=== PATIENT | male | born 1955 | race Caucasian/White ===

== ENCOUNTER → 2018-06-15 09:47 | Outpatient (CLI) | payer OTHER, SELFPAY ==
[2018-06-15 11:18] LABS: Add Manual Diff / Slide Review NO; Basophils Absolute Auto 100 /uL (0-100); Eosinophils Absolute Auto 400 /uL (0-450); Eosinophils Percent Auto 6.6 % (2-4); Hematocrit 46.8 % (41-53); Hemoglobin 16.3 g/dL (13.5-17.5); Lymphocytes Absolute Auto 1600 /uL (1100-4500); Lymphocytes Percent Auto 27.8 % (25-40); Mean Corpuscular HGB Conc 34.8 % (30-36); Mean Corpuscular Hemoglobin 32.2 PG (26-34); Mean Corpuscular Volume 92.6 fL (80-100); Monocytes Absolute Auto 500 /uL (0-900); Monocytes Percent Auto 8.4 % (3-14); Neutrophils Absolute Auto 3200 /uL (1500-7000); Neutrophils Percent Auto 56.2 % (50-75); Platelet Count 209 X10^3/uL (150-400); Red Blood Cell Count 5.05 X10^6/uL (4.5-5.9); Red Cell Distribution Width 12.5 % (11.6-14.8); White Blood Cell Count 5.7 X10^3/uL (4.5-11.0)
[2018-06-15 11:30] LABS: Appearance Urine UA CLEAR; Bilirubin Urine UA NEGATIVE (NEGATIVE); Color Urine UA YELLOW; Glucose Urine UA NEGATIVE (Negative); Ketones Urine UA NEGATIVE (NEGATIVE); Leukocyte Esterase Urine UA NEGATIVE (NEGATIVE); Nitrite Urine UA NEGATIVE (Negative); Occult Blood Urine UA NEGATIVE (Negative); Protein Urine UA NEGATIVE (Negative); Urobilinogen Urine UA 0.2 E.U./dL (0.2)
[2018-06-15 11:37] LABS: Alanine Aminotransferase 50 IU/L (21-72); Albumin 4.9 g/dL (3.5-5.0); Albumin Globulin Ratio 1.6 (1.0-2.8); Alkaline Phosphatase 64 U/L (38-126); Aspartate Aminotransferase 39 IU/L (17-59); Bilirubin Total 0.9 mg/dL (0.2-1.3); Blood Urea Nitrogen 29 mg/dL (9-20); Calcium 9.8 mg/dL (8.4-10.2); Carbon Dioxide 25 mmol/L (22-32); Chloride 100 mmol/L (98-107); Cholesterol 209 mg/dL (140-199); Estimated Glomerular Filt Rate > 60.0 mL/min (>60); Globulin 3.1 g/dL (1.7-4.1); Glucose 98 mg/dL (80-110); HDL Cholesterol 45 mg/dL (40-60); HEMOLYSIS < 15 (0-50); LDL Cholesterol Calculated 118 mg/dL (<100); Potassium 4.7 mmol/L (3.4-5.1); Sodium 138 mmol/L (137-145); Triglycerides 229 mg/dL (35-150)
[2018-06-15 12:07] LABS: Prostate Specific Antigen Scrn 2.83 ng/mL (0.1-4.0)
== END ==
PROVIDERS: Visit Provider Family Medicine
DX: I10 Essential (primary) hypertension (principal); N40.0 Benign prostatic hyperplasia without lower urinary tract symptoms; Z00.00 Encounter for general adult medical examination without abnormal findings
CPT/HCPCS: 36415; 80053; 80061; 81003; 84443; 85025; G0103

== ENCOUNTER → 2020-06-10 07:40 | Outpatient (CLI) | payer OTHER, SELFPAY ==
[2020-06-10] MEDS: COVID-19 VACC #1, MRNA(MOD) 100 MCG/0.5 ML VIAL IM (07:56)
== END ==
PROVIDERS: PCP Family Medicine; Visit Provider Internal Medicine
DX: Z23 Encounter for immunization (principal)
CPT/HCPCS: 0011A; 91301

== ENCOUNTER → 2020-07-08 07:37 | Outpatient (CLI) | payer OTHER, SELFPAY ==
[2020-07-08] MEDS: COVID-19 VACC #2, MRNA(MOD) 100 MCG/0.5 ML VIAL IM (07:46)
== END ==
PROVIDERS: PCP Family Medicine; Visit Provider Internal Medicine
DX: Z23 Encounter for immunization (principal)
CPT/HCPCS: 0012A; 91301

== ENCOUNTER → 2020-08-21 07:47 | Outpatient (CLI) | payer OTHER, SELFPAY ==
[2020-08-21 08:16] LABS: Add Manual Diff / Slide Review NO; Basophils Absolute Auto 0 /uL (0-100); Basophils Percent Auto 0.9 % (0-2); Eosinophils Absolute Auto 400 /uL (0-450); Eosinophils Percent Auto 7.2 % (2-4); Hematocrit 44.9 % (41-53); Hemoglobin 15.5 g/dL (13.5-17.5); Lymphocytes Absolute Auto 1800 /uL (1100-4500); Lymphocytes Percent Auto 36.2 % (25-40); Mean Corpuscular HGB Conc 34.6 % (30-36); Mean Corpuscular Hemoglobin 31.8 PG (26-34); Mean Corpuscular Volume 91.8 fL (80-100); Monocytes Absolute Auto 400 /uL (0-900); Monocytes Percent Auto 8.2 % (3-14); Neutrophils Absolute Auto 2300 /uL (1500-7000); Neutrophils Percent Auto 47.5 % (50-75); Platelet Count 206 X10^3/uL (150-400); Red Blood Cell Count 4.89 X10^6/uL (4.5-5.9); Red Cell Distribution Width 12.4 % (11.6-14.8); White Blood Cell Count 4.9 X10^3/uL (4.5-11.0)
[2020-08-21 09:32] LABS: Alanine Aminotransferase 32 IU/L (<50); Albumin 4.6 g/dL (3.5-5.0); Albumin Globulin Ratio 1.4 (1.0-2.8); Alkaline Phosphatase 62 U/L (38-126); Aspartate Aminotransferase 34 IU/L (17-59); BUN Creatinine Ratio 28.7 (6-22); Bilirubin Total 0.4 mg/dL (0.2-1.3); Blood Urea Nitrogen 27 mg/dL (9-20); Calcium 9.8 mg/dL (8.4-10.2); Carbon Dioxide 25 mmol/L (22-32); Chloride 101 mmol/L (98-107); Cholesterol 220 mg/dL (140-199); Estimated Glomerular Filt Rate > 60.0 mL/min (>60); Globulin 3.2 g/dL (1.7-4.1); Glucose 124 mg/dL (80-110); HDL Cholesterol 42 mg/dL (40-60); HEMOLYSIS < 15 (0-50); Potassium 4.4 mmol/L (3.4-5.1); Sodium 135 mmol/L (137-145); Total Protein 7.8 g/dL (6.3-8.2); Triglycerides 481 mg/dL (35-150); Uric Acid 6.1 mg/dL (3.5-8.5)
[2020-08-21 09:57] LABS: Prostate Specific Antigen 4.24 ng/mL (0.10-4.00)
== END ==
PROVIDERS: PCP Family Medicine; Referring Provider Family Medicine; Visit Provider Family Medicine
DX: I10 Essential (primary) hypertension (principal); M75.01 Adhesive capsulitis of right shoulder; N40.1 Benign prostatic hyperplasia with lower urinary tract symptoms; R39.14 Feeling of incomplete bladder emptying; Z80.42 Family history of malignant neoplasm of prostate
CPT/HCPCS: 36415; 80053; 80061; 84153; 84550; 85025

== ENCOUNTER 2020-10-30 09:00 | Outpatient (RCR) | payer OTHER, SELFPAY ==
--- NOTE | 2020-09-17 14:30 | PT.OPPOC ---
Physical, Occupational & Speech Therapy At [facility] Current Diagnoses Adhesive capsulitis of right shoulder (09/17/20) Visit Care Team Role Provider Type Neeraj Negrete DO Attending Provider Physician Primary Care Provider Referring Provider Specialty: Family Practice Address: [address] [place] [address], [id number] Email: [email or web address] Plan Of Care PT-OP-T Assessment and Plan Start: 09/18/20 08:16 Freq: Status: Active Protocol: Document 09/17/20 14:30 HH (Rec: 09/18/20 08:42 HH [email or web address]) Physical Therapy Assessment Goals return to work Impairment 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 Short Term Goal (STG) pt will regain partial strength to be able to lift > 30 lbs to a table without increase in discomfort STG Duration 4 weeks Food Service Lead Goal (LTG) pt will regain partial strength to be able to lift > 50 lbs fire extinguisher at work repetitively without increase in discomfort LTG Duration 8 weeks ROM Impairment pt lacks of R shoulder ROM Short Term Goal (STG) pt will be able to show increased overall R shoulder AROM without increase pain by 10 degrees STG Duration 4 weeks Food Service Lead Goal (LTG) pt will be able to show increased overall R shoulder AROM without increase pain by 20 degrees therefore he can reach overhead for weighted object/ elkin a shirt LTG Duration 8 weeks quickdash Impairment pt scores 22.7 on quickdash Short Term Goal (STG) pt will be able to show improvements in functionality of his R shoulder by scoring < 15 on quickdash. STG Duration 4 weeks Retirement Goal (LTG) pt will be able to show improvements in functionality of his R shoulder by scoring < 10 on quickdash. LTG Duration 8 weeks Assessment Summary Assessment Farhan is a 64 yo male here for his R shoulder pain started in June. Upon assessment, pt presents signs of supraspinatus tendonitis/ strain from repetitively lifting at work. He has painful arc, increase pain with abduction and extension primarily. His strength is moderately affected at this point. Educated pt to support his shoulder when he's sitting . I also applied KT tape to assist his R shoulder stability. Pt will benefit from skilled therapy to increase his R shoulder ROM, strength and stability in order for him to lift heavy objects at work again. Physical Therapy Plan Frequency and Duration Frequency of Treatment 2x/wk x4, 1x/wkx4 Duration of Treatment 8 weeks Plan of Care Start Date 09/17/20 Plan of Care End Date 11/17/20 Therapeutic Interventions Therapeutic Interventions Home Exercise Program,Joint Mobilizations,Manual Therapy, Neuromuscular Re-education, Patient/Caregiver Education, Self-Care/Home Management,Soft Tissue Mobilization,Taping, Therapeutic Activities, Therapeutic Exercises Modalities Cold Pack/Ice Massage,Electric Stimulation,Hot Packs, Infrared Therapy,Ultrasound Next Visit Focus/Plan Next Note Type Treatment Note Next Visit Plan JEFFREY matos STM at tendon supine ER scap retraction Plan of Care Dates Plan of Care Start Date 09/17/20 Plan of Care End Date 11/17/20 Electronically Signed by: Isidra Israel, PT 09/18/20 0844 Please Sign and Return: I have reviewed this Plan of Care and certify that the skilled therapy services above are required to meet the patient?s needs. Physician Signature Date Printed Name and Credentials Clinical Instructor Signature Printed Name and Credentials
--- NOTE | 2020-09-17 14:30 | PT.OIE ---
Current Diagnoses Adhesive capsulitis of right shoulder (09/17/20) Past Medical History (Last Updated 08/18/20 @ 10:07 by Neeraj Negrete DO) Adhesive capsulitis of shoulder Benign prostatic hyperplasia Family history of prostate cancer Well adult exam Visit Care Team Role Provider Type Neeraj Negrete DO Attending Provider Physician Primary Care Provider Referring Provider Specialty: [facility] Address: [address] [place] [address], [facility] Email: [email or web address] Initial Evaluation PT-OP-A Visit Information Start: 09/18/20 08:16 Freq: Status: Active Protocol: Document 09/17/20 14:30 HH (Rec: 09/18/20 08:42 HH [email or web address]) Out-Patient Physical Therapy Visit Information Visit Information Visit Type Initial Evaluation Visit Start Time 14:30 Visit Stop Time 15:15 Total Visit Minutes 45 Visit Number 1/6 Number of ELECTROLYSIS ENGINEER Visits 0 Evaluation Information Evaluation Date 09/18/20 Precautions Precautions HTN PT-OP-B Current Condition Start: 09/18/20 08:16 Freq: Status: Active Protocol: Document 09/17/20 14:30 HH (Rec: 09/18/20 08:42 HH [email or web address]) Current Condition History of Current Condition Onset Date June Current Complaints R shoulder pain, unable to abduct his arm, reaching overhead History of Current Condition Farhan is a 64 yo male here for his new onset of R shoulder pain started this June. He stated he has been chopping lots of wood since last summer and lifting heavy fire extinguishers at work, which caused his shoulder pain one day. His deep achy pain is lateral to his shoulder with difficulty abducting and holding his arm up. Reaching back to elkin clothes is also difficulty for him. However, lifting through bicep curl does not cause any pain. He denies tingling/ numbness sensation. He also went to see Dr. Negrete who prescribed wall climb exercise to him and he is slightly getting better . 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 Treatment Goals Patient/Caregiver Goals 1. to be able to reach overhead without difficulty 2. to be able to lift objects >50 without pain PT-OP-C Subjective Start: 09/18/20 08:16 Freq: Status: Active Protocol: Document 09/17/20 14:30 HH (Rec: 09/18/20 08:42 HH [email or web address]) Patient Questionnaires Quick Dash- Upper Extremity Quick Dash UE Score 22.7 Quick Dash UE Impairment 20 to 39% Impaired (Score 20- 39) OP-PT Pain Assessment Location R shoulder pain Pain Location Details superiolateral aspect Intensity 4 Scale Used Numeric (0 - 10) Description Aching,Dull,Radiating Frequency Frequent Pain Aggravating Factors Exercise,Lifting Pain Alleviating Factors Inactivity PT-OP-E Functional Tests Start: 09/18/20 08:16 Freq: Status: Active Protocol: Document 09/17/20 14:30 HH (Rec: 09/18/20 08:42 HH [email or web address]) Functional Tests Apley's Scratch Test Action 1- Left slight pain at AC joint region Action 1- Right slight pain at AC joint region Action 2- Left T3 Action 2- Right T1 Action 3- Left T6 Action 3- Right L3 PT-OP-F Manual Assessment Start: 09/18/20 08:16 Freq: Status: Active Protocol: Document 09/17/20 14:30 HH (Rec: 09/18/20 08:42 HH [email or web address]) Manual Assessments Soft Tissue Assessment Soft Tissue Mobility Assessment pain with deep pressure at distal insertion of supraspinatus. hypertonicity at R pec PT-OP-J Posture/Palpation/Skin Start: 09/18/20 08:16 Freq: Status: Active Protocol: Document 09/17/20 14:30 HH (Rec: 09/18/20 08:42 HH [email or web address]) Posture Evaluation Position Standing Shoulder Posture (R) Rounded Scapula Posture (R) Protracted PT-OP-K Range of Motion Start: 09/18/20 08:16 Freq: Status: Active Protocol: Document 09/17/20 14:30 HH (Rec: 09/18/20 08:42 HH [email or web address]) Shoulder Goniometric Range of Motion Shoulder Right Active Shoulder ROM WFL No Testing Position Standing Flexion 150 Extension 45 Abduction 150 External Rotation at 90 degrees 50 Abduction Internal Rotation 50 Comments superiolateral shoulder pain at end range ABD>ER/IR> extension Left Active Shoulder ROM WFL Yes Flexion 175 Extension 52 Abduction 174 External Rotation at 90 degrees 75 Abduction Internal Rotation 75 PT-OP-L Special Tests Start: 09/18/20 08:16 Freq: Status: Active Protocol: Document 09/17/20 14:30 HH (Rec: 09/18/20 08:44 HH [email or web address]) Special Tests Shoulder Special Tests Relocation Test Results +Ve Comments painful with downward traction , no pain with upward compression painful arc Test Results +VE Comments most pain at 90 degrees abduction Drop Arm Rotator Cuff Test Results -ve Empty Can Test Results +VE Neer Impingement Test Results +VE Porras Gabriel Impingement Test Results +VE PT-OP-M Strength Start: 09/18/20 08:16 Freq: Status: Active Protocol: Document 09/17/20 14:30 HH (Rec: 09/18/20 08:42 HH [email or web address]) Shoulder Strength Shoulder Manual Muscle Testing Right Flexion 4- Good- Extension 4- Good- Abduction (C5) 4- Good- External Rotation 3+ Fair+ Internal Rotation 3+ Fair+ Left Flexion 5 Normal Extension 5 Normal Abduction (C5) 5 Normal Adduction 5 Normal External Rotation 5 Normal Internal Rotation 5 Normal PT-OP-Q Treatments Start: 09/18/20 08:16 Freq: Status: Active Protocol: Document 09/17/20 14:30 HH (Rec: 09/18/20 08:42 [email or web address]) Therapeutic Exercises Sitting Exercises OH shawna Sitting Exercise Name FF, abduction Side left Comments for HEP Standing Exercises scap retraction Side bilateral Comments for hEP Manual Therapy Treatment Taping R shoulder Treatment Focus shoulder stability Type of Tape Kinesio Tape Skin Inspection good Comments to provide upward lift of GHJ to relieve pain PT-OP-T Assessment and Plan Start: 09/18/20 08:16 Freq: Status: Active Protocol: Document 09/17/20 14:30 HH (Rec: 09/18/20 08:42 [email or web address]) Physical Therapy Assessment Goals return to work Impairment 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 Short Term Goal (STG) pt will regain partial strength to be able to lift > 30 lbs to a table without increase in discomfort STG Duration 4 weeks Fiberglass Quality Technician Goal (LTG) pt will regain partial strength to be able to lift > 50 lbs fire extinguisher at work repetitively without increase in discomfort LTG Duration 8 weeks ROM Impairment pt lacks of R shoulder ROM Short Term Goal (STG) pt will be able to show increased overall R shoulder AROM without increase pain by 10 degrees STG Duration 4 weeks Fiberglass Quality Technician Goal (LTG) pt will be able to show increased overall R shoulder AROM without increase pain by 20 degrees therefore he can reach overhead for weighted object/ elkin a shirt LTG Duration 8 weeks quickdash Impairment pt scores 22.7 on quickdash Short Term Goal (STG) pt will be able to show improvements in functionality of his R shoulder by scoring < 15 on quickdash. STG Duration 4 weeks Mcc Goal (LTG) pt will be able to show improvements in functionality of his R shoulder by scoring < 10 on quickdash. LTG Duration 8 weeks Assessment Summary Assessment Farhan is a 64 yo male here for his R shoulder pain started in June. Upon assessment, pt presents signs of supraspinatus tendonitis/ strain from repetitively lifting at work. He has painful arc, increase pain with abduction and extension primarily. His strength is moderately affected at this point. Educated pt to support his shoulder when he's sitting . I also applied KT tape to assist his R shoulder stability. Pt will benefit from skilled therapy to increase his R shoulder ROM, strength and stability in order for him to lift heavy objects at work again. Physical Therapy Plan Frequency and Duration Frequency of Treatment 2x/wk x4, 1x/wkx4 Duration of Treatment 8 weeks Plan of Care Start Date 09/17/20 Plan of Care End Date 11/17/20 Therapeutic Interventions Therapeutic Interventions Home Exercise Program,Joint Mobilizations,Manual Therapy, Neuromuscular Re-education, Patient/Caregiver Education, Self-Care/Home Management,Soft Tissue Mobilization,Taping, Therapeutic Activities, Therapeutic Exercises Modalities Cold Pack/Ice Massage,Electric Stimulation,Hot Packs, Infrared Therapy,Ultrasound Next Visit Focus/Plan Next Note Type Treatment Note Next Visit Plan OH shawna STM at tendon supine ER scap retraction
--- NOTE | 2020-09-22 10:35 | PT.OTN ---
Current Diagnoses Adhesive capsulitis of right shoulder (09/22/20) Physical Therapy Treatment Note PT-OP-A Visit Information Start: 09/18/20 08:16 Freq: Status: Active Protocol: Document 09/22/20 10:29 OF (Rec: 09/22/20 10:35 OF [email or web address]) Out-Patient Physical Therapy Visit Information Visit Information Visit Type Treatment Note Visit Start Time 08:16 Visit Stop Time 09:02 Total Visit Minutes 46 Visit Number 2/6 Evaluation Information Evaluation Date 09/18/20 Precautions Precautions HTN PT-OP-B Current Condition Start: 09/18/20 08:16 Freq: Status: Active Protocol: Document 09/17/20 14:30 HH (Rec: 09/18/20 08:42 HH [email or web address]) Current Condition History of Current Condition Onset Date June Current Complaints R shoulder pain, unable to abduct his arm, reaching overhead History of Current Condition Farhan is a 64 yo male here for his new onset of R shoulder pain started this June. He stated he has been chopping lots of wood since last summer and lifting heavy fire extinguishers at work, which caused his shoulder pain one day. His deep achy pain is lateral to his shoulder with difficulty abducting and holding his arm up. Reaching back to elkin clothes is also difficulty for him. However, lifting through bicep curl does not cause any pain. He denies tingling/ numbness sensation. He also went to see Dr. Negrete who prescribed wall climb exercise to him and he is slightly getting better . 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 Treatment Goals Patient/Caregiver Goals 1. to be able to reach overhead without difficulty 2. to be able to lift objects >50 without pain PT-OP-C Subjective Start: 09/18/20 08:16 Freq: Status: Active Protocol: Document 09/22/20 10:29 OF (Rec: 09/22/20 10:35 OF [email or web address]) OP-PT Subjective Patient Comments Patient Comments pt states his shoulder feels a little better and he would like ot cancel all visits except final visit, requesting HEP in place of clinic visits . Patient Reported Progress Improving OP-PT Pain Assessment Pain Assessment Grid Paper Pain Assessment Grid Completed No: 04/15 in R ldr PT-OP-E Functional Tests Start: 09/18/20 08:16 Freq: Status: Active Protocol: Document 09/17/20 14:30 HH (Rec: 09/18/20 08:42 [email or web address]) Functional Tests Apley's Scratch Test Action 1- Left slight pain at AC joint region Action 1- Right slight pain at AC joint region Action 2- Left T3 Action 2- Right T1 Action 3- Left T6 Action 3- Right L3 PT-OP-F Manual Assessment Start: 09/18/20 08:16 Freq: Status: Active Protocol: Document 09/17/20 14:30 HH (Rec: 09/18/20 08:42 HH [email or web address]) Manual Assessments Soft Tissue Assessment Soft Tissue Mobility Assessment pain with deep pressure at distal insertion of supraspinatus. hypertonicity at R pec PT-OP-J Posture/Palpation/Skin Start: 09/18/20 08:16 Freq: Status: Active Protocol: Document 09/17/20 14:30 HH (Rec: 09/18/20 08:42 HH [email or web address]) Posture Evaluation Position Standing Shoulder Posture (R) Rounded Scapula Posture (R) Protracted PT-OP-K Range of Motion Start: 09/18/20 08:16 Freq: Status: Active Protocol: Document 09/17/20 14:30 HH (Rec: 09/18/20 08:42 HH [email or web address]) Shoulder Goniometric Range of Motion Shoulder Right Active Shoulder ROM WFL No Testing Position Standing Flexion 150 Extension 45 Abduction 150 External Rotation at 90 degrees 50 Abduction Internal Rotation 50 Comments superiolateral shoulder pain at end range ABD>ER/IR> extension Left Active Shoulder ROM WFL Yes Flexion 175 Extension 52 Abduction 174 External Rotation at 90 degrees 75 Abduction Internal Rotation 75 PT-OP-L Special Tests Start: 09/18/20 08:16 Freq: Status: Active Protocol: Document 09/17/20 14:30 HH (Rec: 09/18/20 08:44 HH [email or web address]) Special Tests Shoulder Special Tests Relocation Test Results +Ve Comments painful with downward traction , no pain with upward compression painful arc Test Results +VE Comments most pain at 90 degrees abduction Drop Arm Rotator Cuff Test Results -ve Empty Can Test Results +VE Neer Impingement Test Results +VE Porras Gabriel Impingement Test Results +VE PT-OP-M Strength Start: 09/18/20 08:16 Freq: Status: Active Protocol: Document 09/17/20 14:30 HH (Rec: 09/18/20 08:42 HH [email or web address]) Shoulder Strength Shoulder Manual Muscle Testing Right Flexion 4- Good- Extension 4- Good- Abduction (C5) 4- Good- External Rotation 3+ Fair+ Internal Rotation 3+ Fair+ Left Flexion 5 Normal Extension 5 Normal Abduction (C5) 5 Normal Adduction 5 Normal External Rotation 5 Normal Internal Rotation 5 Normal PT-OP-Q Treatments Start: 09/18/20 08:16 Freq: Status: Active Protocol: Document 09/22/20 10:29 OF (Rec: 09/22/20 10:35 OF [email or web address]) Therapeutic Exercises Sidelying Exercises ext rot Side right Comments demo for eccentric control of ext rot Sitting Exercises OH shawna Sitting Exercise Name FF, abduction Side left Comments for HEP Standing Exercises ext rot Side right Resistance TB1 Reps/Minutes 1x10 Comments pt advised to wait until next week for resisted ext rot rows Standing Exercise Name standing rows Side bilateral Resistance TB2 Reps/Minutes 2x10 scap retraction Side bilateral Comments for hEP Self-Care/Home Management Treatment Education Patient Education Home Exercise Program PT-OP-T Assessment and Plan Start: 09/18/20 08:16 Freq: Status: Active Protocol: Document 09/22/20 10:29 OF (Rec: 09/22/20 10:35 OF [email or web address]) Physical Therapy Assessment Rehab Potential Rehabilitation Potential Good Evaluation Complexity Number of Personal Factors/Comorbidities 1-2 Number of Body Systems Impaired 1-2 Clinical Presentation at Evaluation Stable Impairments Impairments Activity Tolerance,Strength Progress Towards Goals Progress Towards Goals Progressing Toward Goals Assessment Summary Assessment Farhan has requested to cancel his visits except final visit. He has pulleys at home now, agreeable to HEP. He has been educated upon [facility] with aron for periscapular MM and shoulder. He is agreeable to HEP as instructed, progressing through pain free ROM Physical Therapy Plan Frequency and Duration Duration of Treatment 8 weeks Plan of Care Start Date 09/17/20 Plan of Care End Date 11/17/20 Next Visit Focus/Plan Next Note Type Treatment Note Next Visit Plan DC per pt request unless worse . Progress HEP for return to function
--- NOTE | 2020-10-30 12:05 | PT.OTN ---
Current Diagnoses Adhesive capsulitis of right shoulder (10/30/20) Physical Therapy Treatment Note PT-OP-A Visit Information Start: 09/18/20 08:16 Freq: Status: Active Protocol: Document 10/30/20 12:00 HH (Rec: 10/30/20 12:05 [email or web address]) Out-Patient Physical Therapy Visit Information Visit Information Visit Type Progress Note Visit Start Time 09:00 Visit Stop Time 09:45 Total Visit Minutes 45 Visit Number 3/6 PT-OP-B Current Condition Start: 09/18/20 08:16 Freq: Status: Active Protocol: Document 09/17/20 14:30 HH (Rec: 09/18/20 08:42 [email or web address]) Current Condition History of Current Condition Onset Date June Current Complaints R shoulder pain, unable to abduct his arm, reaching overhead History of Current Condition Farhan is a 64 yo male here for his new onset of R shoulder pain started this June. He stated he has been chopping lots of wood since last summer and lifting heavy fire extinguishers at work, which caused his shoulder pain one day. His deep achy pain is lateral to his shoulder with difficulty abducting and holding his arm up. Reaching back to elkin clothes is also difficulty for him. However, lifting through bicep curl does not cause any pain. He denies tingling/ numbness sensation. He also went to see Dr. Negrete who prescribed wall climb exercise to him and he is slightly getting better . 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 Treatment Goals Patient/Caregiver Goals 1. to be able to reach overhead without difficulty 2. to be able to lift objects >50 without pain PT-OP-C Subjective Start: 09/18/20 08:16 Freq: Status: Active Protocol: Document 10/30/20 12:00 HH (Rec: 10/30/20 12:05 [email or web address]) OP-PT Subjective Patient Comments Patient Comments Both shoulders getting better expecially my L one. My R one still gets burning sensation and sore easily. Patient Reported Progress Improving PT-OP-E Functional Tests Start: 09/18/20 08:16 Freq: Status: Active Protocol: Document 09/17/20 14:30 HH (Rec: 09/18/20 08:42 [email or web address]) Functional Tests Apley's Scratch Test Action 1- Left slight pain at AC joint region Action 1- Right slight pain at AC joint region Action 2- Left T3 Action 2- Right T1 Action 3- Left T6 Action 3- Right L3 PT-OP-F Manual Assessment Start: 09/18/20 08:16 Freq: Status: Active Protocol: Document 09/17/20 14:30 HH (Rec: 09/18/20 08:42 [email or web address]) Manual Assessments Soft Tissue Assessment Soft Tissue Mobility Assessment pain with deep pressure at distal insertion of supraspinatus. hypertonicity at R pec PT-OP-J Posture/Palpation/Skin Start: 09/18/20 08:16 Freq: Status: Active Protocol: Document 09/17/20 14:30 HH (Rec: 09/18/20 08:42 [email or web address]) Posture Evaluation Position Standing Shoulder Posture (R) Rounded Scapula Posture (R) Protracted PT-OP-K Range of Motion Start: 09/18/20 08:16 Freq: Status: Active Protocol: Document 09/17/20 14:30 HH (Rec: 09/18/20 08:42 [email or web address]) Shoulder Goniometric Range of Motion Shoulder Right Active Shoulder ROM WFL No Testing Position Standing Flexion 150 Extension 45 Abduction 150 External Rotation at 90 degrees 50 Abduction Internal Rotation 50 Comments superiolateral shoulder pain at end range ABD>ER/IR> extension Left Active Shoulder ROM WFL Yes Flexion 175 Extension 52 Abduction 174 External Rotation at 90 degrees 75 Abduction Internal Rotation 75 PT-OP-L Special Tests Start: 09/18/20 08:16 Freq: Status: Active Protocol: Document 09/17/20 14:30 HH (Rec: 09/18/20 08:44 [email or web address]) Special Tests Shoulder Special Tests Relocation Test Results +Ve Comments painful with downward traction , no pain with upward compression painful arc Test Results +VE Comments most pain at 90 degrees abduction Drop Arm Rotator Cuff Test Results -ve Empty Can Test Results +VE Neer Impingement Test Results +VE Porras Gabriel Impingement Test Results +VE PT-OP-M Strength Start: 09/18/20 08:16 Freq: Status: Active Protocol: Document 09/17/20 14:30 HH (Rec: 09/18/20 08:42 [email or web address]) Shoulder Strength Shoulder Manual Muscle Testing Right Flexion 4- Good- Extension 4- Good- Abduction (C5) 4- Good- External Rotation 3+ Fair+ Internal Rotation 3+ Fair+ Left Flexion 5 Normal Extension 5 Normal Abduction (C5) 5 Normal Adduction 5 Normal External Rotation 5 Normal Internal Rotation 5 Normal PT-OP-Q Treatments Start: 09/18/20 08:16 Freq: Status: Active Protocol: Document 10/30/20 12:00 (Rec: 10/30/20 12:05 [email or web address]) Therapeutic Exercises Sitting Exercises OH shawna Sitting Exercise Name FF, abduction with flexed elbow Side bilateral Comments for HEP Standing Exercises shd extension Side bilateral Equipment Used level 1 band Reps/Minutes 10 x2 ext rot Side right Resistance TB1 Reps/Minutes 1x10 Comments cues on scap retraction, and half range only scap retraction Side bilateral Comments for hEP Manual Therapy Treatment Soft Tissue Mobilization RTC Body Location pecs, supraspinatus, subscapularis Mobilization Type Myofascial Release,Sustained Pressure,Trigger Point Release Intensity/Depth Deep Comments significant toncity at subscapularis Joint Mobilizations GHJ Direction inf, post Grade III Body Position Supine PT-OP-T Assessment and Plan Start: 09/18/20 08:16 Freq: Status: Active Protocol: Document 10/30/20 12:00 (Rec: 10/30/20 12:05 [email or web address]) Physical Therapy Assessment Goals return to work Impairment 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 Short Term Goal (STG) pt will regain partial strength to be able to lift > 30 lbs to a table without increase in discomfort STG Duration 4 weeks Manager Psychology Goal (LTG) pt will regain partial strength to be able to lift > 50 lbs fire extinguisher at work repetitively without increase in discomfort LTG Duration 8 weeks Assessment Summary Assessment pt shows good progress with improve range and pain. However, he continues to have burning sensation at supraspinatus tendon with activity and lack of end range abd, flexion. Spent time on manual therapy on RTC and low grade strengthening of RTC. Educated him to rest his arm on supported surface to reduce weight if he ever gets sore. Pt would like me to call him in a few weeks for f/u Physical Therapy Plan Frequency and Duration Duration of Treatment 8 weeks Plan of Care Start Date 09/17/20 Plan of Care End Date 11/17/20 Therapeutic Interventions Therapeutic Interventions Home Exercise Program,Joint Mobilizations,Manual Therapy, Neuromuscular Re-education, Patient/Caregiver Education, Self-Care/Home Management,Soft Tissue Mobilization,Taping, Therapeutic Activities, Therapeutic Exercises Modalities Cold Pack/Ice Massage,Electric Stimulation,Hot Packs, Infrared Therapy,Ultrasound Next Visit Focus/Plan Next Note Type Treatment Note Next Visit Plan DC per pt request unless worse . Progress HEP for return to function
--- NOTE | 2020-12-29 13:21 | PT.OPDS ---
Current Diagnoses Adhesive capsulitis of right shoulder (10/30/20) Visit Care Team Role Provider Type Neeraj Negrete DO Attending Provider Physician Primary Care Provider Referring Provider Specialty: [facility] Address: [address] [place] [address], [facility] Email: [email or web address] Visit Number Visit Number 05/09 Discharge Summary PT-OP-T Assessment and Plan Start: 09/18/20 08:16 Freq: Status: Active Protocol: Document 12/29/20 13:21 (Rec: 12/29/20 13:21 [email or web address]) Physical Therapy Plan Discharge Physical Therapy Discharge Reasons No Longer Attending PT Discharge Comments pt has not returned since October. Per EMR, pt has shown good progress since evaluation . DC from PT today
== END 2021-01-14 12:54 ==
LOC: PHYS 09:00
PROVIDERS: PCP Family Medicine; Referring Provider Family Medicine; Visit Provider Family Medicine
DX: M75.01 Adhesive capsulitis of right shoulder (principal)
CPT/HCPCS: 97110; 97140; 97161

== ENCOUNTER → 2021-04-27 09:16 | Outpatient (CLI) | payer OTHER, SELFPAY ==
--- NOTE | 2021-04-27 09:17 | DI.RAD.S_ITS ---
PROCEDURE: XR KNEE RT 3V INDICATIONS: progressive R knee pain TECHNIQUE: 3 views of the knee were acquired. COMPARISON: None. FINDINGS: Bones: No fractures or dislocations. Small superior patellar enthesophyte. A fabella is seen. Soft tissues: No joint effusion. Lateral edema. IMPRESSION: 1. No acute osseous abnormality. 2. Lateral soft tissue edema. Dictated by: Christ Cuba M.D. on 04/27/2021 at 11:36 Approved by: Christ Cuba M.D. on 04/27/2021 at 11:37
[2021-04-27 10:35] LABS: Alanine Aminotransferase 29 IU/L (<50); Albumin 4.8 g/dL (3.5-5.0); Albumin Globulin Ratio 1.4 (1.0-2.8); Alkaline Phosphatase 55 U/L (38-126); Aspartate Aminotransferase 27 IU/L (17-59); Bilirubin Total 0.7 mg/dL (0.2-1.3); Blood Urea Nitrogen 26 mg/dL (9-20); Calcium 9.5 mg/dL (8.4-10.2); Carbon Dioxide 26 mmol/L (22-32); Chloride 104 mmol/L (98-107); Cholesterol 217 mg/dL (140-199); Estimated Glomerular Filt Rate > 60.0 mL/min (>60); Globulin 3.4 g/dL (1.7-4.1); Glucose 129 mg/dL (80-110); HDL Cholesterol 44 mg/dL (40-60); HEMOLYSIS < 15 (0-50); LDL Cholesterol Calculated 130 mg/dL (<100); Potassium 4.3 mmol/L (3.4-5.1); Sodium 139 mmol/L (137-145); Total Protein 8.2 g/dL (6.3-8.2); Triglycerides 214 mg/dL (35-150); Uric Acid 6.2 mg/dL (3.5-8.5)
[2021-04-27 11:01] LABS: TSH w/ Reflex to FT4 1.53 uIU/mL (0.47-4.68)
[2021-04-27 11:02] LABS: Prostate Specific Antigen 4.66 ng/mL (0.10-4.00)
== END ==
PROVIDERS: PCP Family Medicine; Referring Provider Family Medicine; Visit Provider Family Medicine
DX: R60.0 Localized edema (principal); M25.561 Pain in right knee; I20.9 Angina pectoris, unspecified; E78.1 Pure hyperglyceridemia; N40.0 Benign prostatic hyperplasia without lower urinary tract symptoms
CPT/HCPCS: 36415; 73562; 80053; 80061; 84153; 84443; 84550

== ENCOUNTER → 2021-05-05 08:57 | Outpatient (CLI) | payer OTHER, SELFPAY ==
[2021-05-05 12:21] LABS: COVID19 -Nasal RAPID Negative (Negative)
== END ==
PROVIDERS: PCP Family Medicine; Visit Provider Family Medicine Sleep Medicine
DX: Z20.822 Contact with and (suspected) exposure to COVID-19 (principal)
CPT/HCPCS: 87635; C9803

== ENCOUNTER → 2021-05-06 08:10 | Outpatient (CLI) | payer OTHER, SELFPAY ==
--- NOTE | 2021-05-06 09:14 | PM.TREADMILL ---
Cardiac Stress Test Report Referral & Results Date Patient Seen: 05/06/21 Time Patient Seen: 09:00 Requesting provider: Neeraj Negrete Indication: Chest discomfort, fatigue Rest ECG: Normal sinus rhythm Procedure Note: Today following both written and verbal informed consent, the patient was exercised according to a standard Levi protocol. The patient exercised for a total of 11 minutes achieving a maximum heart rate of 158. Patient's maximum systolic blood pressure was 180. This was an estimated 12.8 METs. Normal hemodynamic response to exercise. Excellent exercise capacity (GRAY-30% on active scale). Presenting symptom of mild chest pressure was reproduced on exercise and increased modestly in proportion to exertion. Occasional PVCs that did NOT increase in proportion to exertion. The rhythm strip had the appearance of ST depression in inferior and septal leads that resolved almost immediately at rest. Interpretation includes artifact vs mild demand ischemia. Impression: Intermediate probability for ischemia. Assuming that ST depressions were not artifact, El treadmill score of 2 predicts 90% survival rate at 5 years from cardiac causes of mortality. In this patient, consider passive surveillance vs follow-up isotope study. Please note: Actual ECG tracings can be found in the PACS system.
== END ==
PROVIDERS: PCP Family Medicine; Referring Provider Family Medicine; Visit Provider Family Medicine
DX: I20.8 Other forms of angina pectoris (principal)
CPT/HCPCS: 93016; 93017; 93018

== ENCOUNTER → 2021-08-31 09:40 | Outpatient (CLI) | payer OTHER, SELFPAY ==
[2021-09-01 08:53] LABS: PSA Free % 15.2 % (.); PSA, Total 4.2 ng/mL (0.0-4.0)
== END ==
PROVIDERS: PCP Family Medicine; Referring Provider Urology; Visit Provider Urology
DX: R97.20 Elevated prostate specific antigen [PSA] (principal); Z80.42 Family history of malignant neoplasm of prostate
CPT/HCPCS: 36415; 84153; 84154

== ENCOUNTER → 2021-12-03 10:27 | Outpatient (CLI) | payer OTHER, SELFPAY ==
[2021-12-04 08:36] LABS: PSA Free % 12.1 % (.); PSA, Total 4.3 ng/mL (0.0-4.0)
== END ==
PROVIDERS: PCP Family Medicine; Referring Provider Urology; Visit Provider Urology
DX: R97.20 Elevated prostate specific antigen [PSA] (principal)
CPT/HCPCS: 36415; 84153; 84154

== ENCOUNTER → 2022-03-11 09:30 | Outpatient (CLI) | payer OTHER, SELFPAY ==
[2022-03-15 20:34] LABS: PSA Free % 16.4 % (.); PSA, Total 4.5 ng/mL (0.0-4.0)
== END ==
PROVIDERS: PCP Family Medicine; Referring Provider Urology; Visit Provider Urology
DX: R97.20 Elevated prostate specific antigen [PSA] (principal); Z80.42 Family history of malignant neoplasm of prostate
CPT/HCPCS: 36415; 84153; 84154

== ENCOUNTER → 2022-07-15 09:26 | Outpatient (CLI) | payer OTHER, SELFPAY ==
[2022-07-17 09:36] LABS: PSA Free % 12.4 % (.); PSA, Total 5.1 ng/mL (0.0-4.0)
== END ==
PROVIDERS: PCP Family Medicine; Referring Provider Urology; Visit Provider Urology
DX: R97.20 Elevated prostate specific antigen [PSA] (principal); Z80.42 Family history of malignant neoplasm of prostate
CPT/HCPCS: 36415; 84153; 84154

== ENCOUNTER → 2022-08-12 12:06 | Outpatient (CLI) | payer OTHER, SELFPAY ==
--- NOTE | 2022-08-12 | DI.MRI.S_ITS ---
PROCEDURE: MR PELVIS WO/W CON INDICATIONS: ELEVATED AND RISING PSA W/FAM HISTORY PROSTATE CA TECHNIQUE: Coronal HASTE, axial T1 FSE with fat saturation, 3-plane nonbreath-hold T2 FSE. After the administration of contrast, dynamic axial, delayed axial and coronal VIBE or 2-D FLASH with fat saturation through the pelvis. Optional diffusion weighted imaging and ADC may be performed. COMPARISON: None. FINDINGS: Image quality: Diffusion weighted and dynamic contrast enhanced images are diagnostic. Prostate: Gland size is 6.1 x 4.8 x 5.7 cm; ellipsoid gland volume is 87 mL. Mild linear and wedge-shaped ADC hypointensities present within the prostate peripheral zone with indistinct T2 correlates (PI-RADS 2 findings). Enlargement of the prostate transitional zone with findings typical of benign prostatic hyperplasia. No large lesion strongly stands out against background parenchymal changes of BPH on T2 weighted images (PI-RADS 2 findings). Genitourinary system: Bladder wall thickness is normal. Distal ureters are non distended. Bowel and peritoneum: No pathologic free pelvic fluid. Inferior colon and small bowel loops are normal in caliber. Nodes and vessels: No pelvic or inguinal adenopathy by size criteria. Iliac vessels are normal in caliber. Bones: Marrow demonstrates normal overall signal, without lesions to suggest metastases. IMPRESSION: 1. No large or highly suspicious focal prostate lesion to direct biopsy. There is enlargement of the prostate transitional zone with findings typical of benign prostatic hyperplasia, with prostate volume estimated at 87 cc. 2. No suspicious lymph nodes identified in the imaged pelvis. Dictated by: Jono Puri M.D. on 08/12/2022 at 14:57 Approved by: Jono Puri M.D. on 08/12/2022 at 15:45
== END ==
PROVIDERS: PCP Family Medicine; Referring Provider Urology; Visit Provider Urology
DX: R97.20 Elevated prostate specific antigen [PSA] (principal); Z80.42 Family history of malignant neoplasm of prostate; N40.1 Benign prostatic hyperplasia with lower urinary tract symptoms
CPT/HCPCS: 72197; A9579

== ENCOUNTER → 2022-11-24 10:25 | Outpatient (CLI) | payer OTHER, SELFPAY ==
[2022-11-27 09:06] LABS: PSA Free % 15.1 % (.); PSA, Total 3.5 ng/mL (0.0-4.0)
== END ==
PROVIDERS: PCP Family Medicine; Referring Provider Urology; Visit Provider Urology
DX: R97.20 Elevated prostate specific antigen [PSA] (principal)
CPT/HCPCS: 36415; 84153; 84154

== ENCOUNTER → 2023-02-10 09:53 | Outpatient (CLI) | payer OTHER, SELFPAY ==
[2023-02-13 23:27] LABS: PSA Free % 14.4 % (.); PSA, Total 4.1 ng/mL (0.0-4.0)
== END ==
PROVIDERS: PCP Family Medicine; Referring Provider Urology; Visit Provider Urology
DX: N42.9 Disorder of prostate, unspecified (principal)
CPT/HCPCS: 36415; 84153; 84154

== ENCOUNTER → 2023-05-26 12:10 | Outpatient (CLI) | payer OTHER, SELFPAY | PROVIDERS: PCP Family Medicine; Referring Provider Urology; Visit Provider Urology | DX: R97.20 Elevated prostate specific antigen [PSA] (principal) | CPT/HCPCS: 36415; 84153; 84154 ==

== ENCOUNTER → 2023-11-27 16:26 | Outpatient (CLI) | payer OTHER, SELFPAY ==
[2023-11-27 17:59] LABS: Alanine Aminotransferase 28 IU/L (<50); Albumin 4.4 g/dL (3.5-5.0); Albumin Globulin Ratio 1.6 (1.0-2.8); Alkaline Phosphatase 54 U/L (38-126); Aspartate Aminotransferase 29 IU/L (17-59); BUN Creatinine Ratio 21.1 (6-22); Bilirubin Total 0.5 mg/dL (0.2-1.3); Blood Urea Nitrogen 24 mg/dL (9-20); Calcium 9.4 mg/dL (8.4-10.2); Carbon Dioxide 23 mmol/L (22-32); Chloride 106 mmol/L (98-107); Cholesterol 190 mg/dL (140-199); Estimated Glomerular Filt Rate > 60 mL/min (>60); Globulin 2.8 g/dL (1.7-4.1); Glucose 112 mg/dL (80-110); HDL Cholesterol 35 mg/dL (40-60); HEMOLYSIS < 15 (0-50); LDL Cholesterol Calculated 84 mg/dL (<100); Potassium 3.7 mmol/L (3.4-5.1); Sodium 139 mmol/L (137-145); Total Protein 7.2 g/dL (6.3-8.2); Triglycerides 354 mg/dL (35-150)
[2023-11-27 18:29] LABS: Prostate Specific Antigen Scrn 3.86 ng/mL (0.1-4.0)
== END ==
LOC: LAB 16:27
PROVIDERS: PCP Family Medicine; Referring Provider Urology; Visit Provider Urology
DX: R97.20 Elevated prostate specific antigen [PSA] (principal); E78.1 Pure hyperglyceridemia; I10 Essential (primary) hypertension; Z12.5 Encounter for screening for malignant neoplasm of prostate; N40.0 Benign prostatic hyperplasia without lower urinary tract symptoms
CPT/HCPCS: 80053; 80061; 84153; 84154; G0103

== ENCOUNTER → 2024-08-29 06:55 | Outpatient (CLI) | payer MEDICARE, SELFPAY ==
--- NOTE | 2024-08-29 06:56 | DI.ECHO.S_ITS ---
[facility] : : [address] : : [place] : : [id number] : : Phone: [phone] Echocardiogram Report + + :Name: CONRAD STREETER Study Date: 08/29/2024 Height: 62 in : :[facility] ReadingLocation: Weight: 178 lb : : Gender: Male BSA: 1.8 m2 : :: 1955 Age: 68 yrs BP: 156/88 mmHg: :Reason For Study: BRADYCARDIA : :Ordering Physician: LEATHA, : :KELLEY Performed By: Summer Garcia : :Referring: KELLEY ZHANG : + + Interpretation Summary 1. Left ventricular contractility is normal. Estimated ejection fraction is greater than 55% with no segmental wall motion abnormalities. No LVH. Indeterminate diastolic function 2. The right ventricular contractility is normal. 3. Dilated left atrium. All other cardiac chambers are of normal size. 4. Mild aortic insufficiency. 5. Mild mitral regurgitation. 6. Mild tricuspid regurgitation with estimated pulmonary systolic artery pressures of 37 mmHg. 7. Mild pulmonic insufficiency. 8. No obvious intracardiac shunts. 9. No obvious intracardiac masses nor thrombi. 10. Low right-sided filling pressures. 11. Dilated ascending thoracic aorta without obvious dissection. Conclusion: Normal biventricular systolic function with mild valvular insufficiencies. Dilated ascending thoracic aorta without obvious dissection. Procedure: A two-dimensional transthoracic echocardiogram with color flow and Doppler was performed. The study quality was technically adequate. There is no prior echocardiogram noted for this patient. The heart rate ranged between 41-55 bpm during the study. Occasional ectopy. Left Ventricle: The left ventricle is normal in size and wall thickness. The ejection fraction is estimated to be 55-60%. Right Ventricle: The right ventricle is normal in size and function. Atria: The left atrium is moderately dilated. Right atrial size is normal. There is no Doppler evidence for an interatrial shunt. Mitral Valve: The mitral valve leaflets appear to open well. There is mild mitral regurgitation. Aortic Valve: The aortic valve is trileaflet. The aortic valve opens well. There is no aortic valve stenosis. There is mild aortic regurgitation. Tricuspid Valve: The tricuspid valve leaflets are thin and pliable. There is mild tricuspid regurgitation. The right ventricular systolic pressure is estimated to be at least 37 mmHg based on an estimated right atrial pressure of 3 mm Hg. Pulmonic Valve: The pulmonic valve leaflets are thin and pliable; valve motion is normal. There is mild pulmonic regurgitation. Great Vessels: The aortic root is normal size. The ascending aorta is mild- moderately enlarged. The IVC is of normal diameter and collapses greater than 50% with a sniff. This suggests a low right atrial pressure of 3 mm Hg. Pericardium/ Pleura There is no pericardial effusion. There is no pleural effusion. MMode/2D Measurements & Calculations LVIDd: 5.5 cm LVOT diam: 2.3 cm LVIDs: 3.6 cm Ao root diam: 3.3 cm FS: 34.2 % asc Aorta Diam: 4.2 cm EPSS: 1.00 cm Ao Arch Diam (Prox Trans): 3.2 cm IVSd: 0.68 cm LVPWd: 0.67 cm LV sheikh. diameter/BSA (cm/m^2): 3.0 LV sys. diameter/BSA (cm/m^2): 2.0 LA A2 area: 23.4 cm2 RA long axis: 5.7 cm LA A4 area: 22.1 cm2 RA area: 16.0 cm2 LA length (vol): 5.5 cm RA vol: 38.1 ml LA vol: 79.3 ml RA : 20.9 ml/m2 LA vol index: 43.6 ml/m2 IVC diam: 1.9 cm RVD1 (basal): 3.7 cm RVD2 (mid): 3.1 cm TAPSE: 2.2 cm Doppler Measurements & Calculations Ao V2 max: 145.3 cm/sec LVOT Max Kun: 91.1 cm/sec Ao V2 mean: 97.1 cm/sec LV V1 max P.3 mmHg Ao max P.5 mmHg LV V1 VTI: 21.1 cm Ao mean P.3 mmHg OMAYRA(I,D): 2.6 cm2 Ao V2 VTI: 35.3 cm OMAYRA(V,D): 2.7 cm2 sev ratio: 0.60 OMAYRA indexed to BSA (cm^2/m^2): 1.4 AI P1/2t: 844.5 msec AI dec slope: 165.2 cm/sec2 MV E max kun: 97.0 cm/sec TR max kun: 292.2 cm/sec MV A max kun: 64.4 cm/sec TR max P.2 mmHg MV E/A: 1.5 PA V2 max: 80.3 cm/sec Med Peak E' Kun: 8.0 cm/sec PA V2 mean: 52.6 cm/sec E/E' med: 12.1 PA mean P.3 mmHg Lat Peak E' Kun: 13.5 cm/sec PA pr(Accel): 25.5 mmHg E/E' lat: 7.2 E/e' average: 9.7 MV dec time: 0.20 sec SV(LVOT): 90.0 ml Reading Physician:DEJAH
== END ==
PROVIDERS: PCP Family Medicine; Referring Provider Family Medicine; Visit Provider Family Medicine
DX: I08.3 Combined rheumatic disorders of mitral, aortic and tricuspid valves (principal); I10 Essential (primary) hypertension; R00.1 Bradycardia, unspecified; I77.89 Other specified disorders of arteries and arterioles
CPT/HCPCS: 93306

== ENCOUNTER → 2024-11-25 08:48 | Outpatient (CLI) | payer MEDICARE, OTHER, SELFPAY ==
[2024-11-25 09:45] LABS: Hemoglobin A1C% w Est Avg Glu 6.1 % (4.0-6.0)
[2024-11-25 09:50] LABS: Alanine Aminotransferase 26 IU/L (<50); Albumin 4.3 g/dL (3.5-5.0); Albumin Globulin Ratio 1.4 (1.0-2.8); Alkaline Phosphatase 56 U/L (38-126); Blood Urea Nitrogen 22 mg/dL (9-20); Calcium 9.1 mg/dL (8.4-10.2); Carbon Dioxide 23 mmol/L (22-32); Chloride 105 mmol/L (98-107); Cholesterol 187 mg/dL (140-199); Estimated Glomerular Filt Rate > 60 mL/min (>60); Globulin 3.1 g/dL (1.7-4.1); Glucose 118 mg/dL (70-99); HDL Cholesterol 46 mg/dL (40-60); HEMOLYSIS 25 (0-50); Potassium 4.7 mmol/L (3.4-5.1); Sodium 137 mmol/L (137-145); Total Protein 7.4 g/dL (6.3-8.2); Triglycerides 179 mg/dL (35-150)
== END ==
PROVIDERS: PCP Family Medicine; Referring Provider Family Medicine; Visit Provider Family Medicine
DX: R73.03 Prediabetes (principal); E78.1 Pure hyperglyceridemia; I10 Essential (primary) hypertension
CPT/HCPCS: 36415; 80053; 80061; 83036